=== PATIENT | male | born 1980 | race Caucasian/White ===

== ENCOUNTER 2020-06-04 04:23 | Emergency (ER) | payer OTHER ==
[~2020-06-04] VITALS: Ht 177.8 cm; Wt 93.9 kg
[2020-06-05] MEDS ORDERED: ELIQUIS5 MG (19:29)
== END 2020-06-04 06:26 | disposition home or self-care (01) ==
LOC: ED 04:23
DX: G43.909 Migraine, unspecified, not intractable, without status migrainosus (principal); Z88.8 Allergy status to other drugs, medicaments and biological substances
CPT/HCPCS: 70450; 96374; 96375; 99284-25; J1200; J2765

== ENCOUNTER 2020-06-05 19:22 | Emergency (ER) | payer OTHER ==
[~2020-06-05] VITALS: Ht 177.8 cm; Wt 93.9 kg
--- OUTSIDE RECORDS SUMMARY | 2020-06-05 19:24 | XMS ---
PreManage Notification: CANDIE LIMON [employer] Manager Events No recent Security Events currently on file CRITERIA MET - [facility] - 2 Visits in 30 Days CARE PROVIDERS There are no care providers on record at this time. Tamera has no Care Guidelines for this patient. [facility]12 MO.) [facility] NOTE: Visits indicate total known visits. ED/[facility] [place] [facility] VISIT TRACKING (12 MO.) [facility]05[facility]2020 19[facility]23 [facility] [place] [facility] COMPLAINT: - INTOXICATED 06/04/2020 04:24 [facility] TYPE: Emergency COMPLAINT: - HEADACHE/LOSS OF VISION INPATIENT VISIT TRACKING (12 MO.) No inpatient visits to display in this time frame [email or web address]
[2020-06-05] MEDS ORDERED: ELIQUIS5 MG (19:29)
--- NOTE | 2020-06-06 18:28 | EKG ---
[facility] [address] [facility] [place], [place] [address] Signed Sinus tachycardia Otherwise normal ECG No previous ECGs available Confirmed by JESUS JOSEPH DO ([id number]) on 06/06/2020 6:28:49 PM Electronically Signed By: JESUS JOSEPH DO 06/06/20 1828 PATIENT NAME: NAHID LIMONY Electrocardiogram DATE OF : 84 PHYSICIAN: JESUS JOSEPH DO REPORT #: [id number] REPORT IS CONFIDENTIAL AND NOT TO BE RELEASED WITHOUT AUTHORIZATION
== END 2020-06-05 19:53 | disposition left against medical advice (07) ==
LOC: ED 19:22
DX: Z53.21 Procedure and treatment not carried out due to patient leaving prior to being seen by health care provider (principal)
CPT/HCPCS: 93005; 93010